=== PATIENT | male | born 1980 | race Two or more races ===

== ENCOUNTER 2016-11-14 06:47 | Day surgery (SDC) | payer BC, OTHER ==
[2016-11-13 15:18] VITALS: BMI 37.0
[2016-11-14 07:15] VITALS: BP 137/86; PULSE 80; TEMP 97.5
== END 2016-11-14 12:00 | disposition home or self-care (01) ==
LOC: JASU-SURG 06:47 → UNDODISIN 12:00 → JASU-SURG 12:00 → EDSTATUS 13:45
PROVIDERS: ATTEND Surgery
PROC: 0D160ZB Bypass Stomach to Ileum, Open Approach (ICD-10-PCS; principal; 2016-11-14)
DX: Z53.8 Procedure and treatment not carried out for other reasons (principal)
CPT/HCPCS: 36415; 82947; 86850; 86900; 86901